=== PATIENT | male | born 1955 | race Caucasian/White ===

== ENCOUNTER 2021-09-14 09:10 | Outpatient (REF) | payer MEDICARE, BC, SELFPAY | END 2021-09-14 09:11 | disposition home or self-care (01) | LOC: HO.HMGCLDS 09:10 | PROVIDERS: Visit Provider Internal Medicine | DX: Z20.822 Contact with and (suspected) exposure to COVID-19 (principal) | CPT/HCPCS: U0003; U0005 ==